=== PATIENT | female | born 1935 | race Caucasian/White ===

== ENCOUNTER 2023-01-22 01:25 | Inpatient (IN) | payer MEDICARE ==
[2023-01-22 01:39] LABS: Glucose,Whole Blood 93 mg/dL (70-110)
[2023-01-22 01:51] LABS: Glucose,Whole Blood 99 mg/dL (70-110)
--- NOTE | 2023-01-22 01:51 | ED ---
Neuro HPI - General Chief Complaint: Neuro Symptoms/Deficit Stated Complaint: Stroke Time Seen by Provider: 01/22/23 01:35 Source: family Mode of arrival: wheelchair Limitations: no limitations - History of Present Illness Is the patient presenting with stroke symptoms?: Yes Last Known Well Date: 01/21/23 Last Known Well Time: 23:30 -: hour(s) Initial Comments: 's patient is an 87-year-old woman who had the acute onset of left hand weakness and slurred speech at approximately 12:30 when she had awakened from a nap. The patient had been normal when she went to sleep at about 11:30 PM. She was awakened from the nap and family noticed that her speech was off and that she was having difficulty controlling her left hand. The patient denies change in vision. No trouble with swallowing. Location: speech, left arm History of same: No Place: home Severity: moderate Quality: weak Improves With: none Worsens With: none On Anticoagulants: No Context: sudden onset Associated Symptoms: denies other symptoms - Related Data Home Medications: Home Medications Medication Instructions Recorded Confirmed Levothyroxine Sodium [Synthroid] 75 mcg PO DAILY 01/22/23 01/22/23 Timolol 0.5% Ophth Soln [Timoptic 1 drop RIGHT EYE BID 01/22/23 01/22/23 0.5% Ophth Soln] estradioL [estradioL (Once Weekly) 1 patch TRANSDERM WE 01/22/23 01/22/23 0.0375 mg Patch] Allergies/Adverse Reactions: Allergies Allergy/AdvReac Type Severity Reaction Status Date / Time meperidine [From Demerol] AdvReac Severe Decreased Verified 01/22/23 06:56 BP Review of Systems ROS Statement: Those systems with pertinent positive or pertinent negative responses have been documented in the HPI. ROS Other: All systems not noted in ROS Statement are negative. Constitutional: Denies: fever, chills Eyes: Denies: eye pain, vision change Respiratory: Denies: cough, dyspnea Cardiovascular: Denies: chest pain, palpitations, syncope Gastrointestinal: Denies: abdominal pain, vomiting, diarrhea Genitourinary: Denies: dysuria, hematuria Musculoskeletal: Denies: back pain Skin: Denies: rash Neurological: Reports: headache, weakness. Denies: numbness, paresthesias Hematological/Lymphatic: Denies: easy bleeding General Exam Limitations: no limitations General appearance: alert, in no apparent distress Head exam: Present: atraumatic, normocephalic Eye exam: Present: normal appearance. Absent: scleral icterus, conjunctival injection Neck exam: Present: full ROM. Absent: tenderness, meningismus Respiratory exam: Present: normal lung sounds bilaterally. Absent: respiratory distress, wheezes, rales, rhonchi, stridor, accessory muscle use Cardiovascular Exam: Present: regular rate, normal rhythm, normal heart sounds. Absent: systolic murmur, diastolic murmur, rubs, gallop GI/Abdominal exam: Present: soft. Absent: distended, tenderness, guarding, rebound, rigid, mass Extremities exam: Present: normal inspection, normal capillary refill. Absent: pedal edema, calf tenderness Back exam: Present: normal inspection. Absent: CVA tenderness (R), CVA tenderness (L) Neurological exam: Present: alert, oriented X3, motor sensory deficit Skin exam: Present: warm, dry, intact, normal color. Absent: rash Stroke MDM - Lab Data Result diagrams: 01/22/23 01:48 01/22/23 01:48 Lab Results 01/22/23 01/22/23 01/22/23 Range/Units 01:38 01:48 01:48 WBC 7.2 (3.8-10.6) k/uL RBC 4.44 (3.80-5.40) m/uL Hgb 13.0 (11.4-16.0) gm/dL Hct 40.4 (34.0-46.0) % MCV 90.9 (80.0-100.0) fL MCH 29.2 (25.0-35.0) pg MCHC 32.1 (31.0-37.0) g/dL RDW 13.3 (11.5-15.5) % Plt Count 189 (150-450) k/uL MPV 9.0 Neutrophils % 56 % Lymphocytes % 28 % Monocytes % 10 % Eosinophils % 2 % Basophils % 1 % Neutrophils # 4.0 (1.3-7.7) k/uL Lymphocytes # 2.0 (1.0-4.8) k/uL Monocytes # 0.7 (0-1.0) k/uL Eosinophils # 0.2 (0-0.7) k/uL Basophils # 0.0 (0-0.2) k/uL PT 9.6 (9.0-12.0) sec INR 0.9 (<1.2) APTT 22.0 (22.0-30.0) sec Sodium (137-145) mmol/L Potassium (3.5-5.1) mmol/L Chloride (98-107) mmol/L Carbon Dioxide (22-30) mmol/L Anion Gap mmol/L BUN (7-17) mg/dL Creatinine (0.52-1.04) mg/dL Est GFR (CKD-EPI)AfAm (>60 ml/min/1.73 sqM) Est GFR (CKD-EPI)NonAf (>60 ml/min/1.73 sqM) Glucose (74-99) mg/dL POC Glucose (mg/dL) 93 (70-110) mg/dL POC Glu [employer] Supervisor ID Karishma Yuan Calcium (8.4-10.2) mg/dL Total Bilirubin (0.2-1.3) mg/dL AST (14-36) U/L ALT (4-34) U/L Alkaline Phosphatase (38-126) U/L Creatine Kinase (30-135) U/L Troponin I (0.000-0.034) ng/mL Total Protein (6.3-8.2) g/dL Albumin (3.5-5.0) g/dL 01/22/23 01/22/23 01/22/23 Range/Units 01:48 01:48 01:50 WBC (3.8-10.6) k/uL RBC (3.80-5.40) m/uL Hgb (11.4-16.0) gm/dL Hct (34.0-46.0) % MCV (80.0-100.0) fL MCH (25.0-35.0) pg MCHC (31.0-37.0) g/dL RDW (11.5-15.5) % Plt Count (150-450) k/uL MPV Neutrophils % % Lymphocytes % % Monocytes % % Eosinophils % % Basophils % % Neutrophils # (1.3-7.7) k/uL Lymphocytes # (1.0-4.8) k/uL Monocytes # (0-1.0) k/uL Eosinophils # (0-0.7) k/uL Basophils # (0-0.2) k/uL PT (9.0-12.0) sec INR (<1.2) APTT (22.0-30.0) sec Sodium 136 L (137-145) mmol/L Potassium 4.1 (3.5-5.1) mmol/L Chloride 106 (98-107) mmol/L Carbon Dioxide 25 (22-30) mmol/L Anion Gap 5 mmol/L BUN 16 (7-17) mg/dL Creatinine 0.84 (0.52-1.04) mg/dL Est GFR (CKD-EPI)AfAm 72 (>60 ml/min/1.73 sqM) Est GFR (CKD-EPI)NonAf 62 (>60 ml/min/1.73 sqM) Glucose 101 H (74-99) mg/dL POC Glucose (mg/dL) 99 (70-110) mg/dL POC Glu [employer] Supervisor ID Wilbur Rich Calcium 8.6 (8.4-10.2) mg/dL Total Bilirubin 0.7 (0.2-1.3) mg/dL AST 37 H (14-36) U/L ALT 24 (4-34) U/L Alkaline Phosphatase 152 H (38-126) U/L Creatine Kinase 80 (30-135) U/L Troponin I <0.012 (0.000-0.034) ng/mL Total Protein 6.9 (6.3-8.2) g/dL Albumin 3.6 (3.5-5.0) g/dL - NIH Stroke Scale 1a. Level of Consciousness: (0) alert 1b. LOC Questions: (0) answers correctly 1c. LOC Commands: (0) performs tasks correctly 2. Best Gaze: (0) normal 3. Visual: (0) no visual loss 4. Facial Palsy: (0) normal symmetrical movement 5a. Motor Arm Left: (1) drift 5b. Motor Arm Right: (0) no drift 6a. Motor Leg Left: (0) no drift 6b. Motor Leg Right: (0) no drift 7. Limb Ataxia: (0) absent 8. Sensory: (0) normal 9. Best Language: (0) no aphasia 10. Dysarthria: (1) mild/moderate dysarthria 11. Extinction/Inattention: (0) no abnormality - EKG Data -: EKG Interpreted by Me EKG shows normal: sinus rhythm, axis (Normal), intervals (Normal), QRS complexes (Possible old anterior infarct.) Rate: normal (Rate 64 bpm) Past Medical History Past Medical History: Thyroid Disorder History of Any Multi-Drug Resistant Organisms: None Reported Past Surgical History: No Surgical Hx Reported Past Psychological History: No Psychological Hx Reported Smoking Status: Never smoker Past Alcohol Use History: None Reported Past Drug Use History: None Reported Course Vital Signs 01/22/23 01/22/23 01/22/23 01:27 01:43 02:08 Temperature 98.2 F 98.1 F Pulse Rate 74 81 73 Respiratory 18 16 Rate Blood Pressure 161/89 151/98 161/86 O2 Sat by Pulse 98 96 98 Oximetry 01/22/23 01/22/23 01/22/23 02:13 02:28 02:43 Temperature Pulse Rate 73 66 67 Respiratory 12 Rate Blood Pressure 153/95 188/89 157/89 O2 Sat by Pulse 98 99 99 Oximetry 01/22/23 01/22/23 01/22/23 02:58 04:00 06:00 Temperature Pulse Rate 64 65 71 Respiratory Rate Blood Pressure 177/89 163/94 153/87 O2 Sat by Pulse 92 L 99 96 Oximetry 01/22/23 07:08 Temperature Pulse Rate 80 Respiratory Rate Blood Pressure 151/90 O2 Sat by Pulse 98 Oximetry Disposition Clinical Impression: Cerebrovascular accident (CVA) Disposition: ADMITTED IP TO THIS [facility] Condition: Fair Is patient prescribed a controlled substance at d/c from ED?: No
--- NOTE | 2023-01-22 02:19 | CT ---
EXAM: CT Head Without Intravenous Contrast CLINICAL HISTORY: Neuro deficit, acute, stroke suspected TECHNIQUE: Axial computed tomography images of the head/brain without intravenous contrast. CTDI is 33.5 mGy and DLP is 810.75 mGy-cm. This CT exam was performed using one or more of the following dose reduction techniques: automated exposure control, adjustment of the mA and/or kV according to patient size, and/or use of iterative reconstruction technique. COMPARISON: No relevant prior studies available. FINDINGS: Brain: Chronic, small vessel ischemic changes in the white matter. No acute edema, intracranial hemorrhage or abnormal mass-effect. Ventricles: Unremarkable. No ventriculomegaly. Bones/joints: Unremarkable. No acute fracture. Soft tissues: Unremarkable. Sinuses: Unremarkable as visualized. No acute sinusitis. Mastoid air cells: Unremarkable as visualized. No mastoid effusion. IMPRESSION: No acute findings in the head/brain.
--- NOTE | 2023-01-22 02:19 | CT ---
EXAM: CT Angiography Head With Intravenous Contrast CLINICAL HISTORY: Neuro deficit, acute, stroke suspected TECHNIQUE: Axial computed tomographic angiography images of the head with intravenous contrast. CTDI is 33 mGy and DLP is 810 mGy-cm. This CT exam was performed using one or more of the following dose reduction techniques: automated exposure control, adjustment of the mA and/or kV according to patient size, and/or use of iterative reconstruction technique. MIP reconstructed images were created and reviewed. COMPARISON: No relevant prior studies available. FINDINGS: Right internal carotid artery: No acute findings. Intracranial segment is patent with no significant stenosis. No aneurysm. Right anterior cerebral artery: Unremarkable. No occlusion or significant stenosis. No aneurysm. Right middle cerebral artery: Unremarkable. No occlusion or significant stenosis. No aneurysm. Right posterior cerebral artery: Unremarkable. No occlusion or significant stenosis. No aneurysm. Right vertebral artery: Small. Terminates in the PICA. Left internal carotid artery: No acute findings. Intracranial segment is patent with no significant stenosis. No aneurysm. Left anterior cerebral artery: Unremarkable. No occlusion or significant stenosis. No aneurysm. Left middle cerebral artery: Unremarkable. No occlusion or significant stenosis. No aneurysm. Left posterior cerebral artery: Unremarkable. No occlusion or significant stenosis. No aneurysm. Left vertebral artery: Unremarkable as visualized. Basilar artery: Unremarkable. No occlusion or significant stenosis. No aneurysm. IMPRESSION: Negative head CTA. EXAM: CT Angiography Neck With Intravenous Contrast CLINICAL HISTORY: Neuro deficit, acute, stroke suspected TECHNIQUE: Routine carotid CT angiography protocol was performed with intravenous contrast. NASCET criteria using the distal ICAs for comparison were used for evaluation of stenoses. CTDI is 33.10 mGy and DLP is 810 mGy-cm. This CT exam was performed using one or more of the following dose reduction techniques: automated exposure control, adjustment of the mA and/or kV according to patient size, and/or use of iterative reconstruction technique. MIP reconstructed images were created and reviewed. COMPARISON: None. FINDINGS: VASCULATURE: Right common carotid artery: Unremarkable. No occlusion or significant stenosis. No dissection. Right internal carotid artery: Unremarkable. Extracranial segment is patent with no occlusion or significant stenosis. No dissection. Right external carotid artery: Unremarkable. No occlusion. Right vertebral artery: Unremarkable. No occlusion or significant stenosis. No dissection. Left common carotid artery: Unremarkable. No occlusion or significant stenosis. No dissection. Left internal carotid artery: Unremarkable. Extracranial segment is patent with no occlusion or significant stenosis. No dissection. Left external carotid artery: Unremarkable. No occlusion. Left vertebral artery: Unremarkable. No occlusion or significant stenosis. No dissection. NECK: Bones/joints: Unremarkable. Soft tissues: Unremarkable. Lung apices: Clear. CAROTID STENOSIS REFERENCE USING NASCET CRITERIA: % ICA stenosis = (1 - narrowest ICA diameter/diameter of distal cervical ICA) x 100. Mild - <50% stenosis. Moderate - 50-69% stenosis. Severe - 70-94% stenosis. Near occlusion - 95-99% stenosis. Occluded - 100% stenosis. IMPRESSION: Negative CTA neck.
[2023-01-22 02:23] LABS: Basophils % (A) 1 %; Eosinophils # (A) 0.2 k/uL (0-0.7); Eosinophils % (A) 2 %; HCT 40.4 % (34.0-46.0); Lymphocytes % (A) 28 %; MCH 29.2 pg (25.0-35.0); MCHC 32.1 g/dL (31.0-37.0); MCV 90.9 fL (80.0-100.0); Monocytes # (A) 0.7 k/uL (0-1.0); Monocytes % (A) 10 %; Neutrophils % (A) 56 %; Platelet Count 189 k/uL (150-450); RBC 4.44 m/uL (3.80-5.40); RDW 13.3 % (11.5-15.5); WBC 7.2 k/uL (3.8-10.6)
[2023-01-22 02:29] LABS: INR 0.9 (<1.2); Prothrombin Time 9.6 sec (9.0-12.0)
--- NOTE | 2023-01-22 02:41 | XR ---
EXAM: XR Chest, 1 View CLINICAL HISTORY: altered mental status TECHNIQUE: Frontal view of the chest. COMPARISON: No relevant prior studies available. FINDINGS: Lungs: Mild infiltration in the lung bases, worse on the left. Pleural space: Unremarkable. No pneumothorax or pleural fluid. Heart: Unremarkable. No cardiomegaly. Mediastinum: Unremarkable. Bones/joints: No acute findings. IMPRESSION: Mild infiltration in the lung bases, worse on the left.
[2023-01-22 02:49] LABS: ALT 24 U/L (4-34); AST 37 U/L (14-36); African American GFR (CKD) 72 (>60 ml/min/1.73 sqM); Albumin 3.6 g/dL (3.5-5.0); Alkaline Phosphatase 152 U/L (38-126); Anion Gap 5 mmol/L; Blood Urea Nitrogen 16 mg/dL (7-17); Calcium 8.6 mg/dL (8.4-10.2); Carbon Dioxide 25 mmol/L (22-30); Chloride 106 mmol/L (98-107); Creatine Kinase 80 U/L (30-135); Glucose 101 mg/dL (74-99); Non-African American GFR(CKD) 62 (>60 ml/min/1.73 sqM); Potassium 4.1 mmol/L (3.5-5.1); Sodium 136 mmol/L (137-145); Total Bilirubin 0.7 mg/dL (0.2-1.3); Total Protein 6.9 g/dL (6.3-8.2)
[2023-01-22] MEDS ORDERED: ASPIRIN 325 MG TAB PO STA (03:07)
[2023-01-22] MEDS: SODIUM CHLORIDE 0.9% 1,000 ML IV SCH (03:41)
[2023-01-22] MEDS ORDERED: FAMOTIDINE 20 MG TAB PO SCH (09:00)
[2023-01-22] MEDS: LEVOTHYROXINE 75 MCG TAB PO SCH (09:08)
[2023-01-22] MEDS: TIMOLOL 0.5% OPHTH DROPS 5 ML BTL RIGHT EYE SCH ×2 (09:08→20:32)
--- NOTE | 2023-01-22 09:48 | P.HPIM ---
History of Present Illness This Is a pleasant 87 years old female with past medical history of hypothyroidism. Patient is Mary Presents with symptoms slurred speech and left and weakness Patient says that she presents because of weakness in her left upper extremity since yesterday. Associated with mild headache across her eyes. Her son wants her to come to the hospital because he thought she has a stroke. Also her son told her chest slurred speech but she confirmed to me her speech is normal today. She denies any weakness of the face or leg. No numbness or tingling. No dizziness. She denies any chest pain dyspnea, no urinary or bowel symptoms however patient states that she has chronic urine or bowel incontinence as she doesn't go out a lot and Goes Shopping for Her. She Denies Smoking Alcohol or Illicit Tracts. she is not on aspirin at home. Vital signs stable and patient is afebrile. She has unremarkable CBC, INR, BMP and liver enzymes. Glucose 101. Troponin 2 are negative. EKG showing normal sinus rhythm at [address]-T changes Chest x-ray: Mild infiltration in the lung bases, worse on the left CT of the brain: No acute findings in the head/brain CTA of the head and neck: Negative head CT A, negative neck CT patient already started on aspirin 325 mg. Also she is on a statin 40 mg Review of Systems Review of systems CONSTITUTIONAL: No fever, no malaise, no fatigue. HEENT: No recent visual problems or hearing problems. Denied any sore throat. CARDIOVASCULAR: No orthopnea, PND, no palpitations, no syncope. PULMONARY: No shortness of breath, no cough, no hemoptysis. GASTROINTESTINAL: No diarrhea, no nausea, no vomiting, no abdominal pain. Norm oactive bowel sounds. NEUROLOGICAL: No headaches, no weakness, no numbness. HEMATOLOGICAL: Denies any bleeding or petechiae. GENITOURINARY: Denies any burning micturition, frequency, or urgency. MUSCULOSKELETAL/RHEUMATOLOGICAL: Denies any joint pain, swelling, or any muscle pain. ENDOCRINE: Denies any polyuria or polydipsia. Past Medical History Past Medical History: Thyroid Disorder History of Any Multi-Drug Resistant Organisms: None Reported Past Surgical History: No Surgical Hx Reported Past Psychological History: No Psychological Hx Reported Smoking Status: Never smoker Past Alcohol Use History: None Reported Past Drug Use History: None Reported - Past Family History Sister(s) Family Medical History: Cancer Mother Family Medical History: CVA/TIA Medications and Allergies Home Medications Medication Instructions Recorded Confirmed Type Levothyroxine Sodium [Synthroid] 75 mcg PO DAILY 01/22/23 01/22/23 History Timolol 0.5% Ophth Soln [Timoptic 1 drop RIGHT EYE BID 01/22/23 01/22/23 History 0.5% Ophth Soln] estradioL [estradioL (Once Weekly) 1 patch TRANSDERM WE 01/22/23 01/22/23 History 0.0375 mg Patch] Allergies Allergy/AdvReac Type Severity Reaction Status Date / Time meperidine [From Demerol] AdvReac Severe Decreased Verified 01/22/23 06:56 BP Physical Exam Vitals: Vital Signs Temp Pulse Resp BP Pulse Ox 01/22/23 07:08 80 151/90 98 01/22/23 06:00 71 153/87 96 01/22/23 04:00 65 163/94 99 01/22/23 02:58 64 177/89 92 L 01/22/23 02:43 67 12 157/89 99 01/22/23 02:28 66 188/89 99 01/22/23 02:13 73 153/95 98 01/22/23 02:08 73 161/86 98 01/22/23 01:43 98.1 F 81 16 151/98 96 01/22/23 01:27 98.2 F 74 18 161/89 98 Intake and Output 01/21/23 01/22/23 01/22/23 22:59 06:59 14:59 Other: Weight 81.647 kg GENERAL: The patient is alert and oriented x3, not in any acute distress. Well developed, well nourished. HEENT: Pupils are round and equally reacting to light. EOMI. No scleral icterus. No conjunctival pallor. Normocephalic, atraumatic. No pharyngeal erythema. No thyromegaly. CARDIOVASCULAR: S1 and S2 present. No murmurs, rubs, or gallops. PULMONARY: Chest is clear to auscultation, no wheezing , no crackles. ABDOMEN: Soft, nontender, nondistended, normoactive bowel sounds. No palpable organomegaly. MUSCULOSKELETAL: No joint swelling or deformity. EXTREMITIES: No cyanosis, clubbing, or pedal edema. -NEUROLOGICAL: Cranial nerves are grossly intact. Motor mild weakness including the crib of the left upper extremity. Rest of Motor is 5/5. Sensation intact. SKIN: No rashes. no petechiae. Results CBC & Chem 7: 01/22/23 01:48 01/22/23 01:48 Labs: Abnormal Lab Results - Last 24 Hours (Table) 01/22/23 Range/Units 01:48 Sodium 136 L (137-145) mmol/L Glucose 101 H (74-99) mg/dL AST 37 H (14-36) U/L Alkaline Phosphatase 152 H (38-126) U/L Assessment and Plan Assessment: Suspected acute stroke, with acute slurred speech and left and weakness Hypothyroidism Patient wants to be Obesity with BMI of 30 Plan: Continue with aspirin and Lipitor Neurology consult continue with thyroid hormone. Check TSH Labs and medication were reviewed.. Continue same treatment. Continue with symptomatic treatment. Resume home medication. Monitor labs and vitals. DVT and GI prophylaxis. Further recommendations as per clinical course of the patient DVT prophylaxis: Subcutaneous heparin GI Prophylaxis: Pepcid PT/OT: Pending Prognosis is guarded
--- NOTE | 2023-01-22 11:57 | P.CNNES ---
History of Present Illness Consult date: 01/22/23 Requesting physician: Grayson Kumar Reason for Consult: Acute CVA History of Present Illness: This is an 87-year-old woman who presented because of slurred speech and left- sided weakness. Seems the patient noticed left-sided weakness and slurred speech around 12:30 AM on 01/22/2023. Patient went to sleep at 11:30 PM on 01/21/2023 then when woke up at 12:30am on 01/22/23 her son noticed her speech was slurred and had left arm weakness. Patient denies any history of stroke in the past or TIAs. She denies being on any antiplatelets or anticoagulation. She fears her speech has resolved but continued to have left upper extremity weakness. Some other workup during his hospital visit consisted of: CT of the head is reported as no acute finding in the brain. CT angiography of the head and neck was reported as negative. Per the ED team NIH stroke scale was at 214 for the left arm weakness which the patient had a drift and 1 for dysarthria. It does not seem to the patient received IV TPA and I assume its because of low NIH stroke scale and the risks outweigh the benefits. Review of Systems Review of system: The 12 point system was reviewed and apparent positive and negative per HPI. Past Medical History Past Medical History: Thyroid Disorder History of Any Multi-Drug Resistant Organisms: None Reported Past Surgical History: No Surgical Hx Reported Additional Past Surgical History / Comment(s): catarcts, bladder surgery Past Anesthesia/Blood Transfusion Reactions: No Reported Reaction Past Psychological History: No Psychological Hx Reported Smoking Status: Never smoker Past Alcohol Use History: None Reported Past Drug Use History: None Reported - Past Family History Sister(s) Family Medical History: Cancer Mother Family Medical History: CVA/TIA Medications and Allergies Home Medications Medication Instructions Recorded Confirmed Type Levothyroxine Sodium [Synthroid] 75 mcg PO DAILY 01/22/23 01/22/23 History Timolol 0.5% Ophth Soln [Timoptic 1 drop RIGHT EYE BID 01/22/23 01/22/23 History 0.5% Ophth Soln] estradioL [estradioL (Once Weekly) 1 patch TRANSDERM WE 01/22/23 01/22/23 History 0.0375 mg Patch] Allergies Allergy/AdvReac Type Severity Reaction Status Date / Time meperidine [From Demerol] AdvReac Severe Decreased Verified 01/22/23 06:56 BP Physical Examination - Vital Signs Vital Signs: Vital Signs Temp Pulse Pulse Resp BP BP Pulse Ox 01/22/23 08:00 97.4 F L 70 18 106/63 98 01/22/23 07:08 80 151/90 98 01/22/23 06:00 71 153/87 96 01/22/23 04:00 65 163/94 99 01/22/23 02:58 64 177/89 92 L 01/22/23 02:43 67 12 157/89 99 01/22/23 02:28 66 188/89 99 01/22/23 02:13 73 153/95 98 01/22/23 02:08 73 161/86 98 01/22/23 01:43 98.1 F 81 16 151/98 96 01/22/23 01:27 98.2 F 74 18 161/89 98 Intake and Output 01/21/23 01/22/23 01/22/23 22:59 06:59 14:59 Other: Voiding Method External Catheter Weight 81.647 kg 81.647 kg GENERAL: The patient is lying in bed and is not in acute distress. NEUROLOGICAL: Higher mental function: The patient is awake, alert, oriented to self, place and time. Patient is following commands. No aphasia and no neglect. Cranial nerves: The pupils are round, equal and reactive to light and accommodation. Visual lowry are full to confrontation throughout. Extraocular movement is intact no nystagmus is noted. Facial sensation is normal to touch throughout. The facial strength is normal throughout. Hearing is normal bilaterally to hand rub. Tongue is midline and moved [id number] without any difficulty. No dysarthria is noted. Shoulder shrug is normal bilaterally. Motor: The strength is left arm/forearm is 4+. 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 Otherwise 5 over 5 throughout. Normal tone and bulk. Cerebellum: Normal finger to nose bilaterally. Sensation: Sensation is normal to touch throughout. Reflexes (right/left): 2+ throughout. Plantars are downgoing bilaterally. Results - Laboratory Findings CBC and BMP: 01/22/23 01:48 01/22/23 01:48 Abnormal Lab Findings: Abnormal Labs 01/22/23 01:48 Sodium 136 L Glucose 101 H AST 37 H Alkaline Phosphatase 152 H Assessment and Plan Assessment: Likely acute ischemic stroke and patient presented with dysarthria and left arm weakness. He dysarthria has resolved. No IV TPA since likely low NIH stroke scale 2 in ED. Hypertension Hypothyroidism Plan: In the ED the patient was started on aspirin 325mg daily. I will decrease ASA to 81mg daily and start her on Plavix 75mg daily (she was not on antiplatelets prior to this). Patient is on pravastatin former gram daily at bedtime and that's sufficient for signature stroke prophylaxis. Ordered MRI of the brain, 2-D echo. Lipid panel is ordered and I ordered TSH as well as hemoglobin A1c. Continue neuro checks Cardiac monitoring PT OT and DEVELOPMENT ANALYST are consulted We'll defer the rest of the medical management to primary team For DVT prophylaxis the patient is on subcu heparin 5000 units every 12 hours. Upon discharge, recommend the patient to follow-up with neurologist as outpatient within 1-2 weeks. The plan is discussed with patient and primary attending. Thank you for the consultation. Time with Patient: Greater than 30
[2023-01-22] MEDS: CLOPIDOGREL 75 MG TAB PO SCH (12:37)
--- NOTE | 2023-01-22 19:23 | CA ---
Transthoracic Echo Report Name: Carol Petit Age: 87 Gender: F : 1935 Exam Date: 01/22/2023 14:32 Exam Location: [facility] Ht (in): 65 Wt (lb): 180 Ordering Physician: Ajay Blanco MD Attending/Referring Phys: Leadite Man Nicolás Deshpande Procedure CPT: Indications: stroke Cardiac Hx: Technical Quality: Fair Contrast 1: Total Dose (mL): Contrast 2: Total Dose (mL): MEASUREMENTS (Male / Female) Normal Values 2D ECHO LV Diastolic Diameter PLAX 4.0 cm 4.2 - 5.9 / 3.9 - 5.3 cm LV Systolic Diameter PLAX 2.3 cm IVS Diastolic Thickness 1.0 cm 0.6 - 1.0 / 0.6 - 0.9 cm LVPW Diastolic Thickness 1.1 cm 0.6 - 1.0 / 0.6 - 0.9 cm LV Relative Wall Thickness 0.5 RV Internal Dim ED PLAX 2.6 cm LVOT Diameter 2.0 cm Aortic Root Diameter 3.0 cm LA Systolic Diameter LX 2.5 cm 3.0 - 4.0 / 2.7 - 3.8 cm LV Diastolic Volume MOD BP 40.8 cm??? 67 - 155 / 56 - 104 cm??? LV Systolic Volume MOD BP 13.7 cm??? 22 - 58 / 19 - 49 cm??? LV Ejection Fraction MOD BP 66.5 % >= 55 % LV Diastolic Volume MOD 4C 51.2 cm??? LV Systolic Volume MOD 4C 17.4 cm??? LV Ejection Fraction MOD 4C 66.1 % LV Diastolic Length 4C 6.6 cm LV Systolic Length 4C 5.2 cm LV Diastolic Volume MOD 2C 29.9 cm??? LV Systolic Volume MOD 2C 9.9 cm??? LV Ejection Fraction MOD 2C 67.0 % LV Diastolic Length 2C 6.0 cm LV Systolic Length 2C 4.7 cm LA Volume 42.9 cm??? 18 - 58 / 22 - 52 cm??? DOPPLER AV Peak Velocity 116.5 cm/s AV Peak Gradient 5.4 mmHg AI Peak Velocity 385.9 cm/s AI Peak Gradient 59.6 mmHg AI Pressure Half Time 1027.1 ms LVOT Peak Velocity 94.7 cm/s LVOT Peak Gradient 3.6 mmHg AV Area Cont Eq pk 2.5 cm??? MV Peak Velocity 106.3 cm/s MV Peak Gradient 4.5 mmHg MV Mean Velocity 52.9 cm/s MV Mean Gradient 1.4 mmHg MV Velocity Time Integral 37.0 cm MR Peak Velocity 504.5 cm/s MR Peak Gradient 101.8 mmHg Mitral E Point Velocity 71.3 cm/s Mitral A Point Velocity 105.3 cm/s Mitral E to A Ratio 0.7 MV Deceleration Time 291.1 ms MV E' Velocity 6.4 cm/s Mitral E to MV E' Ratio 11.2 TR Peak Velocity 269.4 cm/s TR Peak Gradient 29.0 mmHg Right Ventricular Systolic Press 34.0 mmHg PV Peak Velocity 86.1 cm/s PV Peak Gradient 3.0 mmHg FINDINGS Left Ventricle Normal LV size and wall thickness.left ventricular ejection fraction is estimated at55-60 %. Right Ventricle Normal right ventricular size. Right Atrium Normal right atrial size. Left Atrium Normal left atrial size. Mitral Valve Mild MAC. Mild MR. Aortic Valve Trileaflet aortic valve. Mild Sclerosis. Mild to moderate AI.no aortic stenosis. Tricuspid Valve Structurally normal tricuspid valve. Pulmonic Valve Pulmonic valve not well visualized. No pulmonic regurgitation. Pericardium Normal pericardium. Aorta Normal size aortic root and proximal ascending aorta. CONCLUSIONS Normal LV size and systolic function Previewed by: Dr. Jordin Venegas MD (Electronically Signed) Final Date: 22 January 2023 19:22
[2023-01-22] MEDS: HEPARIN SODIUM,PORCINE/PF 5,000 UNIT/0.5 ML SYRINGE SQ SCH (19:44)
[2023-01-22] MEDS: PRAVASTATIN SODIUM 40 MG TAB PO SCH (19:44)
[2023-01-23] MEDS: LEVOTHYROXINE 75 MCG TAB PO SCH (06:34)
[2023-01-23] MEDS: SODIUM CHLORIDE 0.9% 1,000 ML IV SCH (06:34)
[2023-01-23] MEDS: ASPIRIN 81 MG PO SCH (08:52)
[2023-01-23] MEDS: HEPARIN SODIUM,PORCINE/PF 5,000 UNIT/0.5 ML SYRINGE SQ SCH ×2 (08:52→08:54)
[2023-01-23] MEDS: CLOPIDOGREL 75 MG TAB PO SCH (08:53)
[2023-01-23] MEDS: FAMOTIDINE 20 MG TAB PO SCH (08:53)
[2023-01-23] MEDS: TIMOLOL 0.5% OPHTH DROPS 5 ML BTL RIGHT EYE SCH ×2 (08:54→20:33)
[2023-01-23] MEDS ORDERED: ASPIRIN 325 MG TAB PO SCH (09:00)
--- NOTE | 2023-01-23 14:31 | P.PN ---
Subjective Progress Note Date: 01/23/23 The patient seen at bedside and she feels she is doing better. Denies of any new neurological issues. Objective - Vital Signs Vital signs: Vital Signs Temp 97.7 F 01/23/23 11:15 Pulse 59 L 01/23/23 11:15 Resp 18 01/23/23 11:15 BP 149/89 01/23/23 11:15 Pulse Ox 98 01/23/23 11:15 FiO2 Intake & Output 01/22/23 01/23/23 01/23/23 18:59 06:59 18:59 Intake Total 540 240 480 Output Total 0 Balance 540 240 480 Weight 81.647 kg Intake: Oral 540 240 480 Output: Urine 0 Other: Voiding Method External Catheter External Catheter External Catheter # Voids 2 2 3 # Bowel Movements 1 - Exam GENERAL: The patient is sitting on side of bed and is not in acute distress. NEUROLOGICAL: Higher mental function: The patient is awake, alert, oriented to self, place and time. Patient is following commands. No aphasia and no neglect. Cranial nerves: The pupils are round, equal and reactive to light and accommodation. Visual lowry are full to confrontation throughout. Extraocular movement is intact no nystagmus is noted. Facial sensation is normal to touch throughout. The facial strength is normal throughout. Hearing is normal bilaterally to hand rub. Tongue is midline and moved [id number] without any difficulty. No dysarthria is noted. Shoulder shrug is normal bilaterally. Motor: The strength is left arm/forearm is 4+. Left hand bridge manager is 5/5. Otherwise 5 over 5 throughout. Normal tone and bulk. Cerebellum: Normal finger to nose bilaterally. Sensation: Sensation is normal to touch throughout. Reflexes (right/left): 2+ throughout. Plantars are downgoing bilaterally. Some other workup during his hospital visit consisted of: TSH is 1.070 Hemoglobin A1c is 5.7 2-D echo was reported as normal left ventricle size and systolic function. Normal left atrial size. CT of the head is reported as no acute finding in the brain. CT angiography of the head and neck was reported as negative. - Labs CBC & Chem 7: 01/22/23 01:48 01/22/23 01:48 Assessment and Plan Assessment: Likely acute ischemic stroke and patient presented with dysarthria and left arm weakness. He dysarthria has resolved. No IV TPA since likely low NIH stroke scale 2 in ED. Hypertension Hypothyroidism Plan: Continue aspirin 81 mg daily and Plavix 75 mg daily (she was not on antiplatelets prior to this). Patient is on pravastatin former gram daily at bedtime and that's sufficient for signature stroke prophylaxis. Pending MRI of the brain and lipid panel. , 2-D echo. Continue neuro checks Cardiac monitoring. If MRI of the brain confirms she has stroke then recommend an event monitor for 30 days if no A. fib or a flutter is noted on tele-monitoring. PT OT and DATABASE ADMINISTRATION MANAGER are consulted We'll defer the rest of the medical management to primary team For DVT prophylaxis the patient is on subcu heparin 5000 units every 12 hours. Upon discharge, recommend the patient to follow-up with neurologist as o utpatient within 1-2 weeks. The plan is discussed with patient and so who is at bedside. Time with Patient: Less than 30
[2023-01-23 14:46] LABS: Chol/HDL Ratio 2.59 Ratio; LDL Cholesterol,Calculated 113.8 mg/dL (0.0-131.0)
[2023-01-23] MEDS: PRAVASTATIN SODIUM 40 MG TAB PO SCH (20:32)
[2023-01-24] MEDS: SODIUM CHLORIDE 0.9% 1,000 ML IV SCH (03:19)
[2023-01-24] MEDS: LEVOTHYROXINE 75 MCG TAB PO SCH (05:55)
--- NOTE | 2023-01-24 08:05 | P.PN ---
Subjective This Is a pleasant 87 years old female with past medical history of hypothyroidism. Patient is Dr. Hernandez Presents with symptoms slurred speech and left and weakness Patient says that she presents because of weakness in her left upper extremity since yesterday. Associated with mild headache across her eyes. Her son wants her to come to the hospital because he thought she has a stroke. Also her son told her chest slurred speech but she confirmed to me her speech is normal today. She denies any weakness of the face or leg. No numbness or tingling. No dizziness. She denies any chest pain dyspnea, no urinary or bowel symptoms however patient states that she has chronic urine or bowel incontinence as she doesn't go out a lot and Goes Shopping for Her. She Denies Smoking Alcohol or Illicit Tracts. she is not on aspirin at home. Vital signs stable and patient is afebrile. She has unremarkable CBC, INR, BMP and liver enzymes. Glucose 101. Troponin 2 are negative. EKG showing normal sinus rhythm at [address]-T changes Chest x-ray: Mild infiltration in the lung bases, worse on the left CT of the brain: No acute findings in the head/brain CTA of the head and neck: Negative head CT A, negative neck CT patient already started on aspirin 325 mg. Also she is on a statin 40 mg 01/24/2023 Patient feels much better, she walks in her room freely with no difficulty asking to be discharged home. Her left hand is improving. 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 Slurred speech resolved since admission. no Other neurological deficits Echocardiogram showed normal LV function MRI of the brain is still pending Objective - Vital Signs Vital signs: Vital Signs Temp 97.7 F 01/23/23 11:15 Pulse 59 L 01/23/23 11:15 Resp 18 01/23/23 11:15 BP 149/89 01/23/23 11:15 Pulse Ox 98 01/23/23 11:15 FiO2 Intake & Output 01/22/23 01/23/23 01/23/23 18:59 06:59 18:59 Intake Total 540 240 240 Output Total 0 Balance 540 240 240 Weight 81.647 kg Intake: Oral 540 240 240 Output: Urine 0 Other: Voiding Method External Catheter External Catheter External Catheter # Voids 2 2 3 # Bowel Movements 1 - Exam GENERAL: The patient is alert and oriented x3, not in any acute distress. Well developed, well nourished. HEENT: Pupils are round and equally reacting to light. EOMI. No scleral icterus. No conjunctival pallor. Normocephalic, atraumatic. No pharyngeal erythema. No thyromegaly. CARDIOVASCULAR: S1 and S2 present. No murmurs, rubs, or gallops. PULMONARY: Chest is clear to auscultation, no wheezing . no crackles. ABDOMEN: Soft, nontender, nondistended, normoactive bowel sounds. No palpable organomegaly. MUSCULOSKELETAL: No joint swelling or deformity. EXTREMITIES: No cyanosis, clubbing, . No leg edema. -NEUROLOGICAL: Gross neurological examination did not reveal any focal deficits. Except for very mild weakness of her left hand, improving SKIN: No rashes. no petechiae. - Labs CBC & Chem 7: 01/22/23 01:48 01/22/23 01:48 Assessment and Plan Assessment: Suspected acute stroke, with acute slurred speech and left and weakness Hypothyroidism Patient wants to be Obesity with BMI of 30 Plan: Continue with aspirin and Lipitor Neurology consult continue with thyroid hormone. MRI of brain pending Labs and medication were reviewed.. Continue same treatment. Continue with symptomatic treatment. Resume home medication. Monitor labs and vitals. DVT and GI prophylaxis. Further recommendations as per clinical course of the patient DVT prophylaxis: Subcutaneous heparin GI Prophylaxis: Pepcid PT/OT: Pending Prognosis is guarded
[2023-01-24] MEDS: CLOPIDOGREL 75 MG TAB PO SCH (09:50)
[2023-01-24] MEDS: ASPIRIN 81 MG PO SCH (09:50)
[2023-01-24] MEDS: HEPARIN SODIUM,PORCINE/PF 5,000 UNIT/0.5 ML SYRINGE SQ SCH ×3 (09:50→20:09)
[2023-01-24] MEDS: FAMOTIDINE 20 MG TAB PO SCH (09:50)
[2023-01-24] MEDS: TIMOLOL 0.5% OPHTH DROPS 5 ML BTL RIGHT EYE SCH ×2 (09:50→20:10)
--- NOTE | 2023-01-24 14:04 | MR ---
EXAMINATION TYPE: MR brain wo/w con DATE OF EXAM: 01/24/2023 1:52 PM CLINICAL INDICATION:Female, 87 years old with history of stroke, left sided weakness and dysarthria; Stroke, left sided weakness, dysarthria COMPARISON: CT brain 01/22/2023. TECHNIQUE: Multi planar, multi sequence imaging was performed through the brain including: T1, T2, In version recovery, susceptibility weighted imaging and gradient echo imaging and Diffusion weighted im aging. The patient was then given intravenous contrast and multi planar, T1 fat-saturation images wer e obtained. IV Contrast: 8 cc Gadavist FINDINGS: Cortical areas of restricted diffusion within the right frontal lobe cortex are present. Ge neralized cerebral atrophy changes. Proportional dilation to the ventricular system. Intracranial ar terial flow voids are maintained. Midline structures show no abnormality. Scattered foci of high T2 s ignal intensity are seen within the periventricular white matter. The susceptibility weighted images do not reveal any evidence for micro-hemorrhage. After administration of gadolinium, no abnormal enha ncement is seen. The bone marrow signal is within normal limits. Paranasal sinuses and mastoid air cells: Mucosal thickening predominantly in the right maxillary sinu s. Visualized orbits: Orbital contents are intact. IMPRESSION: 1. A few areas of Acute/subacute CVA involving the right frontal lobe cortex. 2. Nonspecific white matter changes, likely related to small vessel ischemic disease 3. No abnormal postcontrast enhancement.
[2023-01-24] MEDS: PRAVASTATIN SODIUM 40 MG TAB PO SCH (20:06)
[2023-01-25] MEDS: SODIUM CHLORIDE 0.9% 1,000 ML IV SCH (03:13)
[2023-01-25 04:27] VITALS: RESP 16
[2023-01-25] MEDS: LEVOTHYROXINE 75 MCG TAB PO SCH (05:44)
--- NOTE | 2023-01-25 06:07 | P.PN ---
Subjective Progress Note Date: 01/24/23 This Is a pleasant 87 years old female with past medical history of hypothyroidism. Patient is Dr. Hernandez Presents with symptoms slurred speech and left and weakness Patient says that she presents because of weakness in her left upper extremity since yesterday. Associated with mild headache across her eyes. Her son wants her to come to the hospital because he thought she has a stroke. Also her son told her chest slurred speech but she confirmed to me her speech is normal today. She denies any weakness of the face or leg. No numbness or tingling. No dizziness. She denies any chest pain dyspnea, no urinary or bowel symptoms however patient states that she has chronic urine or bowel incontinence as she doesn't go out a lot and Goes Shopping for Her. She Denies Smoking Alcohol or Illicit Tracts. she is not on aspirin at home. Vital signs stable and patient is afebrile. She has unremarkable CBC, INR, BMP and liver enzymes. Glucose 101. Troponin 2 are negative. EKG showing normal sinus rhythm at [address]-T changes Chest x-ray: Mild infiltration in the lung bases, worse on the left CT of the brain: No acute findings in the head/brain CTA of the head and neck: Negative head CT A, negative neck CT patient already started on aspirin 325 mg. Also she is on a statin 40 mg 01/23/2023 Patient feels much better, she walks in her room freely with no difficulty asking to be discharged home. Her left hand is improving. 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 Slurred speech resolved since admission. no Other neurological deficits Echocardiogram showed normal LV function MRI of the brain is still pending 01/24/2023 Patient is Seen and evaluated in follow-up this morning currently up in the bathroom with no deficits noted. Patient reports to feeling better and extremely anxious and wanting to go home. Awaiting MRI of the brain with neurology following. Patient to continue on aspirin and Plavix with statin therapy and recommend outpatient follow-up with neurology. Patient is afebrile denies any chest pain or shortness of breath. Patient denies visual disturbances and reports to feeling much improved. Review of systems: Constitutional: No reports of fatigue, fever, or chills Cardiovascular: No reports of chest pain or palpitations Respiratory: No reports of shortness of breath or cough GI: No reports of nausea, vomiting, or diarrhea : No reports of dysuria or retention Neurovascular: No reports of weakness or numbness All medications have been reviewed Physical exam: GENERAL: The patient is alert and oriented x3, not in any acute distress. Well developed, well nourished. HEENT: Pupils are round and equally reacting to light. EOMI. No scleral icterus. No conjunctival pallor. Normocephalic, atraumatic. No pharyngeal erythema. No thyromegaly. CARDIOVASCULAR: S1 and S2 present. No murmurs, rubs, or gallops. PULMONARY: Chest is clear to auscultation, no wheezing . no crackles. ABDOMEN: Soft, nontender, nondistended, normoactive bowel sounds. No palpable organomegaly. MUSCULOSKELETAL: No joint swelling or deformity. EXTREMITIES: No cyanosis, clubbing, . No leg edema. NEUROLOGICAL: Gross neurological examination did not reveal any focal deficits. Except for very mild weakness of her left hand, improving SKIN: No rashes. no petechiae. Assessment: acute stroke, with acute slurred speech and left and weakness, confirmed by MRI Hypothyroidism history Hyperlipidemia Obesity with BMI of 30 GI prophylaxis DVT prophylaxis No code Plan: Continue with aspirin and Plavix along with statin therapy. MRI confirmed CVA and neurology recommending an event monitor. Event monitor was ordered for discharge with multiple attempts to contact nuclear medicine for application with voicemails left and no response Patient will need outpatient follow-up with neurology along with cardiology She was scheduled for discharge today also awaiting an event monitor to be placed Prognosis is guarded Patient will discharge in the a.m. The impression and plan of care has been dictated by Judy Anand, Nurse Pr actitioner as directed. Dr. Hermes MD I have performed a history and examination and MDM of this patient, discussed the same with the dictator, and agree with the dictator's assessment and plan as written ,documented as a scribe. Based on total visit time, I have performed more than 50% of the visit. Objective - Vital Signs Vital signs: Vital Signs Temp 98.6 F 01/24/23 17:34 Pulse 61 01/24/23 17:34 Resp 16 01/24/23 17:34 BP 125/78 01/24/23 17:34 Pulse Ox 99 01/24/23 17:34 FiO2 Intake & Output 01/23/23 01/24/23 01/24/23 18:59 06:59 18:59 Intake Total 980 260 Balance 980 260 Intake: IV 20 Invasive Line 1 20 Oral 980 240 Other: Voiding Method External Catheter External Catheter # Voids 3 1 1 # Bowel Movements 1 - Labs CBC & Chem 7: 01/22/23 01:48 01/22/23 01:48
[2023-01-25] MEDS: ASPIRIN 81 MG PO SCH (07:56)
[2023-01-25] MEDS: CLOPIDOGREL 75 MG TAB PO SCH (07:56)
[2023-01-25] MEDS: HEPARIN SODIUM,PORCINE/PF 5,000 UNIT/0.5 ML SYRINGE SQ SCH (07:56)
[2023-01-25] MEDS: FAMOTIDINE 20 MG TAB PO SCH (07:56)
[2023-01-25 09:32] VITALS: BP 155/79; PULSE 80; TEMP 97.9
[2023-01-25] MEDS: TIMOLOL 0.5% OPHTH DROPS 5 ML BTL RIGHT EYE SCH (10:05)
--- NOTE | 2023-01-29 09:35 | P.DS ---
Providers Date of admission: 01/22/23 03:07 Expected date of discharge: 01/25/23 Attending physician: Malou Mirza Consults: 01/22/23 03:09 Consult Physician Routine Consulting Provider: Anushka Chavez Consult Reason/Comments: Acute CVA Do you want consulting provider notified?: Yes Primary care physician: DENG Zavala Hospital Course: Final diagnosis acute stroke, with acute slurred speech and left and weakness, confirmed by MRI Hypothyroidism history Hyperlipidemia Obesity with BMI of 30 GI prophylaxis DVT prophylaxis No code Discharge disposition Patient is being discharged in a stable condition with guarded prognosis to home with an event monitor. Patient will follow-up with Mary mims in the outpatient setting upon discharge. Patient is to continue with close outpatient follow-up with cardiology and neurology as scheduled. Total time taken is greater than 35 minutes. Hospital course This is a 87-year-old female who was recently admitted with slurred speech and left-sided weakness worked up as a stroke and found to have an acute stroke on MRI. Patient seen and evaluated by neurology recommending aspirin and Plavix and outpatient follow-up with cardiology and neurology. Recommending event monitor which was placed this morning and patient will follow up with cardiology outpatient. Patient reports symptoms have resolved and extremely anxious to go home. Patient has been cleared by consultations. Please refer to consultation notes for further HPI. Currently no reports of chest pain, shortness of breath, or palpitations. Patient is afebrile. No reports of nausea or vomiting and patient is tolerating diet. Patient will be discharged home today. Guarded prognosis. Physical exam: Gen: This is a 87-year-old female who is awake, alert and oriented 3, well- developed, well-nourished, obese HEENT: Head is atraumatic, normocephalic. Pupils equal, round. Sclerae is anicteric. NECK: Supple. No JVD. No lymphadenopathy. No thyromegaly. LUNGS: Clear to auscultation. No wheezes or rhonchi. No intercostal retractions. HEART: Regular rate and rhythm. No murmur. ABDOMEN: Soft. Bowel sounds are present. No masses. No tenderness. EXTREMITIES: No pedal edema. No calf tenderness. NEUROLOGICAL: Patient is awake, alert and oriented x3. Cranial nerves 2 through 12 are grossly intact. Please refer to medication reconciliation sheet for a list of medications. The impression and plan of care has been dictated by Judy Anand, Nurse Practitioner as directed. Dr. Kevin MD I have performed a history and examination and MDM of this patient, discussed the same with the dictator, and agree with the dictator's assessment and plan as written ,documented as a scribe. Based on total visit time, I have performed more than 50% of the visit. Patient Condition at Discharge: Fair Plan - Discharge Summary Discharge Rx Participant: No New Discharge Prescriptions: New Pravastatin Sodium [Pravachol] 40 mg PO HS #30 tab Aspirin 81 mg PO DAILY #30 tab Clopidogrel [Plavix] 75 mg PO DAILY #30 tab Continue estradioL [estradioL (Once Weekly) 0.0375 mg Patch] 1 patch TRANSDERM WE Timolol 0.5% Ophth Soln [Timoptic 0.5% Ophth Soln] 1 drop RIGHT EYE BID Levothyroxine Sodium [Synthroid] 75 mcg PO DAILY Discharge Medication List Levothyroxine Sodium [Synthroid] 75 mcg PO DAILY 01/22/23 [History] Timolol 0.5% Ophth Soln [Timoptic 0.5% Ophth Soln] 1 drop RIGHT EYE BID 01/22/23 [History] estradioL [estradioL (Once Weekly) 0.0375 mg Patch] 1 patch TRANSDERM WE 01/22/23 [History] Aspirin 81 mg PO DAILY #30 tab 01/24/23 [Rx] Clopidogrel [Plavix] 75 mg PO DAILY #30 tab 01/24/23 [Rx] Pravastatin Sodium [Pravachol] 40 mg PO HS #30 tab 01/24/23 [Rx] Follow up Appointment(s)/Referral(s): Laurita Paul MD [REFERRING] - 1 Week (Office to get referral and contact patient with follow up appointment.) Mary Beltrán NPC [Primary Care Provider] - 02/01/23 11:00 am González Vo MD [STAFF PHYSICIAN] - 1 Week (Office to pull records and call patient with a follow up appointment.) Patient Instructions/Handouts: Ischemic Stroke (DC), Holter Monitor (GEN) Activity/Diet/Wound Care/Special Instructions: Event monitor on discharge Activity Limited until follow-up Recommend follow-up with primary care provider on discharge Follow-up neurology outpatient Follow-up cardiology outpatient Continue with medications as prescribed Discharge Disposition: HOME SELF-CARE
== END 2023-01-25 11:25 | disposition home or self-care (01) | DRG 65 ==
LOC: EC 01:25 → 3SCARD 03:07
PROVIDERS: ADMIT Hospitalist; ATTEND Hospitalist
DX: I63.9 Cerebral infarction, unspecified (principal); G81.94 Hemiplegia, unspecified affecting left nondominant side; R29.702 NIHSS score 2; E66.9 Obesity, unspecified; Z79.890 Hormone replacement therapy; E03.9 Hypothyroidism, unspecified; R47.1 Dysarthria and anarthria; N39.498 Other specified urinary incontinence; R15.9 Full incontinence of feces; I34.0 Nonrheumatic mitral (valve) insufficiency; Z68.30 Body mass index [BMI] 30.0-30.9, adult; E78.5 Hyperlipidemia, unspecified; Z88.8 Allergy status to other drugs, medicaments and biological substances
CPT/HCPCS: 36415; 70450; 70496; 70498; 70553; 71045; 80053; 80061; 82550; 83036; 84443; 84484; 85025; 85610; 85730; 93005; 93270; 93306